=== PATIENT | female | born 1990 | race Caucasian/White ===

== ENCOUNTER 2020-02-10 05:36 | Inpatient (IN) ==
--- NOTE | 2020-02-07 17:04 | History & Physical Report ---
Date of Service February 07, 2020 Assessment & Plan (1) Previous delivery affecting , antepartum: (2) Encounter for sterilization: (3) History of classical section: (4) 36 to 37 weeks gestation of : (5) Bicornuate uterus: plan admit on monday for planned section, desires tubal as well. consent reviewed and signed. on bedside u/s today cephalic presentation. risk, alt and complications reviewed of both procedures. preop, postop instructions and course reviewed. History of Present Illness Chief Complaint: planned section with h/o T incision on uterus Primary Care Provider: Calvin Power MD 29yo who will be 36 6/7wks on day of her admission for planned section due to prior T incision on uterus. Patient desires repeat c/s due to prior history of section x 2. She also desires tubal ligation. At her last section both her skin and uterine incision wer converted to a T shape due to difficulty delivering the back down fetus in presence of bicornuate uterus. She is ready for upcoming section. Denies bleeding, rom or poor movement. She is sure she is done childbearing. PNC c/b 1. prior c/s x 2 as described above 2. desires sterilization 3. short interval 4. bicornuate uterus PNL rh pos, ri, gbs neg. Allergies Allergy/AdvReac Type Severity Reaction Status Date / Time clavulanic acid Allergy Intermediate AUGMENTIN-R Verified 02/07/20 08:47 SIM Penicillins Allergy Intermediate AUGMENTIN-R Verified 02/07/20 08:47 SIM cat dander Allergy Mild sneezing, Verified 02/07/20 08:47 watery eyes, swelling of eyes Home Medications Home Medications Medication Instructions Recorded Confirmed Type Vitamin 1 tab PO HS 11/19/18 02/07/20 History albuterol sulfate 1 inh INHALATION QID PRN 02/06/20 02/07/20 History calcium carbonate [Tums] 300 mg PO QID PRN 02/06/20 02/07/20 History loratadine 10 mg PO HS 02/06/20 02/07/20 History breast pump #1 ea 02/07/20 02/07/20 Rx Patient History Medical History (Updated 02/07/20 @ 17:03 by Sherrie Thayer MD, FACOG) Allergy-induced asthma inhaler prn Bicornuate uterus Nausea and vomiting after administration of anesthetic agent Surgical History (Updated 02/07/20 @ 17:02 by Sherrie Thayer MD, FACOG) History of x2 History of classical section History of colonoscopy with polypectomy at age 5--d/t bleeding in stool--found polyps and removed History of tonsillectomy and adenoidectomy [place] teeth removed Family History (Updated 02/06/20 @ 11:06 by Melissa Mckinley, GEM) Mother Family history of diabetes mellitus Father Family history of diabetes mellitus Sister Family history of diabetes mellitus Family/Other Breast cancer Grandmother (Maternal) Hypertension Grandfather (Paternal) Hypertension Family history of diabetes mellitus Grandmother (Paternal) Family history of diabetes mellitus Other No family history of adverse response to anesthesia Social History Preferred Language: Telugu Communication Ability: Effective Heating Technician Required: No Beliefs That Will Affect Care: None marital status: marital status details: Kian Vazquez (33) [phone] Current Living Situation: Spouse and Family Current Living Situation Comment: lives with and 2 sons current occupational status: unemployed current occupation: homemaker Feels Safe at Home: Yes Smoking Status: Never smoker Second Hand Exposure: No ; Hx Substance Use: No OB History sab x1, c/s x 2, last c/s complicated by T incision on uterus HOT BREAD BAKER History nl paps, no stds Review of Systems as per Subjective / HPI; no fever no change in stools no dysuria and no abnormal vaginal bleeding Physical Exam Constitutional: WD/WN, vitals as above Respiratory: normal respiratory effort, lungs clear to auscultation Cardiovascular: Rate/Rhythm: regular rate and regular rhythm Gastrointestinal (Abdomen): Percussion/Palpation: abdomen soft (gravid, well healed midline and pfannenstiel incision); abdomen nontender Musculoskeletal: nt calves. no edema Neurologic: grossly normal Psychiatric: A+Ox3, euthymic affect Coding Level of Care Code None Diagnoses Previous delivery affecting , antepartum O34.219 Encounter for sterilization Z30.2 History of classical section Z98.891 36 to 37 weeks gestation of Bicornuate uterus Q51.3
[2020-02-10] MEDS ORDERED: LACTATED RINGER'S 1,000 ML IV SCH ×2 (05:45→08:30)
[2020-02-10] MEDS ORDERED: CEFAZOLIN 2000MG 2,000 MG/15 ML SYR IV SCH (06:00)
[2020-02-10 06:01] LABS: Basophils # (auto) 0.02 K/uL (0-0.2); Basophils % (auto) 0.2 %; Eosinophils # (auto) 0.33 K/uL (0-0.5); Eosinophils % (auto) 2.9 %; Hematocrit (blood only) 38.1 % (37-47); Hemoglobin 12.6 g/dL (12.0-16.0); Immature Granulocytes # (auto) 0.09 K/uL (0.00-0.02); Immature Granulocytes % (auto) 0.8 %; Lymphocytes # (auto) 2.53 K/uL (1.2-3.4); Lymphocytes % (auto) 22.4 %; Mean Corpuscular Hemoglobin 30.7 pg (25-34); Mean Corpuscular Volume 92.9 fL (80-100); Mean Platelet Volume 10.5 fL (7.4-10.4); Monocytes # (auto) 0.73 K/uL (0.11-0.59); Monocytes % (auto) 6.5 %; Neutrophils % (auto) 67.2 %; Platelet Count 141 K/uL (130-400); RDW Coefficient of Variation 15.3 % (11.5-14.5); RDW Standard Deviation 51.8 fL (36.4-46.3)
[2020-02-10 06:05] LABS: Mean Corpuscular Hgb Conc 33.1 g/dL (32-36)
[2020-02-10] MEDS ORDERED: PHENYLEPHRINE HCL 10 MG/ML VIAL ONE (06:47)
[2020-02-10] MEDS ORDERED: fentaNYL citrate 100 MCG/2 ML VIAL ONE (06:47)
[2020-02-10] MEDS ORDERED: MoRPHine SULFATE PF 1 MG/ML 10 ML AMP/VIAL ONE (06:47)
[2020-02-10] MEDS ORDERED: METOCLOPRAMIDE HCL INJ 5 MG/ML 2 ML VIAL ONE (06:47)
[2020-02-10] MEDS ORDERED: ONDANSETRON INJ 2 MG/ML 2 ML VIAL ONE (06:47)
[2020-02-10] MEDS ORDERED: ePHEDrine sulfate 50 MG/ML AMP ONE (06:47)
[2020-02-10] MEDS ORDERED: OXYTOCIN 10 UNITS/ML VIAL ONE ×3 (06:47)
[2020-02-10] MEDS ORDERED: CITRIC ACID/SODIUM CITRATE 15 ML UDC PO ONE (06:56)
--- NOTE | 2020-02-10 07:03 | Anesthesiology Consultation ---
Date of Service February 10, 2020 Assessment & Plan Chart Review Chart Review: Acceptable Risk for Surgery Consults Requested none ASA ASA2 Proposed Anesthesia Anesthesia Type: Spinal Risk / Benefits Reviewed With: PT / POA / Parent / Guardian, Accepts Plan and Informed Consent Obtained History Surgery Operation Date: 02/10/20 07:30 Proposed Procedures p Section in LD - Sherrie Thayer MD, FACOG s Post Tubal Ligation L & D - Sherrie Thayer MD, FACOG Height/Weight Height: 5 ft Weight: 72.121 kg Allergies Allergy/AdvReac Type Severity Reaction Status Date / Time clavulanic acid Allergy Intermediate AUGMENTIN-R Verified 02/10/20 05:56 SIM Penicillins Allergy Intermediate AUGMENTIN-R Verified 02/10/20 05:56 SIM cat dander Allergy Mild sneezing, Verified 02/10/20 05:56 watery eyes, swelling of eyes Medications Home Medications Medication Instructions Recorded Confirmed Last Taken Vitamin 1 tab PO HS 11/19/18 02/10/20 02/09/20 19:00 albuterol sulfate 1 inh INHALATION QID PRN 02/06/20 02/07/20 Unknown calcium carbonate [Tums] 300 mg PO QID PRN 02/06/20 02/10/20 02/09/20 19:00 loratadine 10 mg PO HS 02/06/20 02/10/20 02/09/20 19:00 breast pump #1 ea 02/07/20 02/07/20 Unknown NPO Date Last Intake of Fluids: 02/09/20 Time Last Intake of Fluids: 22:30 Date Last Intake of Solids: 02/09/20 Time Last Intake of Solids: 20:00 Past Medical History Medical History Allergy-induced asthma inhaler prn Bicornuate uterus Nausea and vomiting after administration of anesthetic agent Exercise / Class Metabolic Activity II 4-5 Yardwork/Stairs/Walk up hill Past Family History Family History Mother Family history of diabetes mellitus Father Family history of diabetes mellitus Sister Family history of diabetes mellitus Family/Other Breast cancer Grandmother (Maternal) Hypertension Grandfather (Paternal) Hypertension Family history of diabetes mellitus Grandmother (Paternal) Family history of diabetes mellitus Other No family history of adverse response to anesthesia Past Surgical History Surgical History History of x2 History of classical section History of colonoscopy with polypectomy at age 5--d/t bleeding in stool--found polyps and removed History of tonsillectomy and adenoidectomy [place] teeth removed Past Anesthesia History No Hx of Anesthesia Complications and No Family Hx of Anesthesia Complications History of PONV No Hx of PONV and No Hx of Motion Sickness Social History Smoking Status: Never smoker Do You Dip or Chew Tobacco: No Hx Alcohol Use: No Alcohol Intake Frequency Comment: drinks rarely for special occasions but none during Hx Substance Use: No substance use type: does not use Physical Exam Vital Signs Last Vital Signs Temp 37.1 C 02/10/20 05:58 Pulse 107 H 02/10/20 06:15 Resp 18 02/10/20 06:15 BP 110/60 02/10/20 06:15 ENMT Mouth: no TMJ abnormality Thyromental Distance: > or= 3.5 Finger Breadths Mallampati Class: II Neck normal visual inspection and trachea midline; neck extension not limited Respiratory normal respiratory effort Auscultation: lungs clear to auscultation bilaterally Cardiovascular Rate/Rhythm: regular rate and regular rhythm Heart Sounds: no murmur Musculoskeletal Spine: normal cervical ROM Extremities: full ROM of extremities Neurologic moves all extremities Psychiatric Orientation: alert and oriented x 3 Testing Laboratory Results 02/10/20 05:52 Blood Type O Positive 02/10/20 05:45 Antibody Screen NEGATIVE 02/10/20 05:45
[2020-02-10] MEDS ORDERED: ePHEDrine sulfate 50 MG/ML AMP IV PRN (07:13)
[2020-02-10] MEDS ORDERED: NALOXONE HCL 1 MG in SODIUM CHLORIDE 0.9% 1000ML 1,000 ML IV PRN (07:13)
[2020-02-10] MEDS ORDERED: MoRPHine SULFATE 2 MG/ML CARP IV PRN (07:13)
[2020-02-10] MEDS ORDERED: MoRPHine SULFATE PF 1 MG/ML 10 ML AMP/VIAL INT SPINAL ONE (07:13)
[2020-02-10] MEDS ORDERED: ONDANSETRON INJ 2 MG/ML 2 ML VIAL IV PRN (07:13)
[2020-02-10] MEDS ORDERED: LACTATED RINGER'S 500 ML IV PRN (07:13)
[2020-02-10] MEDS ORDERED: NALOXONE HCL 0.08 MG in SYRINGE 1.8 ML IV PRN (07:13)
[2020-02-10] MEDS ORDERED: PROMETHAZINE HCL 25 MG in SODIUM CHLORIDE 0.9% 50 ML IV PRN (07:13)
[2020-02-10] MEDS ORDERED: NALBUPHINE HCL INJ 10 MG/ML AMP IV PRN (07:13)
[2020-02-10] MEDS ORDERED: METOCLOPRAMIDE HCL 20 MG in SODIUM CHLORIDE 0.9% 50 ML IV PRN (07:13)
[2020-02-10] MEDS ORDERED: MEPERIDINE HCL 25 MG/ML CARP/VIAL IV PRN (07:13)
[2020-02-10] MEDS ORDERED: DiphenhydrAMINE HCL 50 MG/ML VIAL IV PRN (07:13)
[2020-02-10] MEDS ORDERED: NALOXONE HCL 0.4 MG/1 ML VIAL/CARP IV PRN (07:13)
[2020-02-10] MEDS ORDERED: SODIUM CHLORIDE 0.9% 1000ML 1,000 ML IV SCH (07:15)
[2020-02-10] MEDS ORDERED: NO NARCOTICS OR SEDATIVES SCH (07:15)
[2020-02-10] MEDS ORDERED: DC INTRASPINAL MORPHINE SCH (07:15)
--- NOTE | 2020-02-10 07:27 | History & Physical Bridge Note ---
Date of Service February 10, 2020 History & Physical Bridge Note I have examined the patient, reviewed the History & Physical and in the interval since the performance of the History & Physical I have noted the following changes of clinical significance: no changes noted. baby now transverse back down on us. reviewed operative plan with patient. she plans tubal as well.
[2020-02-10] MEDS ORDERED: PHENYLEPHRINE 100MCG/ML 5ML SYR ONE (08:03)
[2020-02-10] MEDS ORDERED: ePHEDrine sulfate 50 MG/ML SYR ONE (08:22)
[2020-02-10] MEDS ORDERED: SENNA 8.6 MG TAB PO PRN (08:28)
[2020-02-10] MEDS ORDERED: HYDROCORTISONE ACETATE 25 MG SUPP PR PRN (08:28)
[2020-02-10] MEDS ORDERED: BENZOCAINE 20% AER SPR 82.5 GM CAN EXT PRN (08:28)
[2020-02-10] MEDS ORDERED: DIPHTHERIA/TETANUS/PERTUSSIS 0.5 ML SYR/VIAL IM ONE (08:28)
[2020-02-10] MEDS ORDERED: SUPERCREAM 0.870% 15 GM JAR EXT PRN (08:28)
--- NOTE | 2020-02-10 08:40 | Post Operative Brief Note ---
PG Immediate Post Op with CF Date of Surgery February 10, 2020 Pre & Post Diagnosis Operation Date: 02/10/20 07:30 Pre-Op Diagnosis: 36+wk intrauterine repeat section desires permanent sterilization Post-Op Diagnosis: same I identified the patient and participated in the time-out.: Yes Procedure Operation Date: 02/10/20 07:30 Actual Procedures Repeat Low Vertical Section Modified Efren Bilateral Tubal Ligation Surgeon Sherrie Thayer MD, FACOG Taper And Floater Dr. Sprague Estimated Blood Loss 650 Findings Consistent with Post-Op Diagnosis (viable female apgars 8,9, normal uterus tubes and ovaries bilaterally. cavity with left fundal muscular septum) Fluids 2000 Specimens Specimen Description: cord blood placenta--hold bilateral portions of fallopian tubes Drains Umanzor Catheter Anesthesia Type Spinal Complications none Disposition Accompanied Patient To Recovery: No Disposition: L&D
--- NOTE | 2020-02-10 08:55 | Operative Report ---
PG Post Operative Report Pre & Post Diagnosis Operation Date: 02/10/20 07:30 Pre-Op Diagnosis: 36+wks ega repeat section prior classical section desires pemanent sterilization Post-Op Diagnosis: same I identified the patient and participated in the time-out.: Yes Procedure Operation Date: 02/10/20 07:30 Actual Procedures Repeat Low Vertical Section Modified Efren Bilateral Tubal Ligation Surgeon Sherrie Thayer MD, FACOG Trust Administrative Assistant Dr. Sprague Estimated Blood Loss 650 Findings Consistent with Post-Op Diagnosis (viable female, apgars 8,9, normal uterus, tubes and ovaries bilaterally. cavity with muscular septum on left fundus. ) Fluids 2000 Specimens portions of right and left fallopian tubes, placenta--hold, cord blood Drains olivera Anesthesia Type Spinal Complications none Disposition Accompanied Patient To Recovery: No Disposition: L&D Indications 29yo at 36+wks namrata presents to L&D for planned repeat section with h/o prior classical uterine incision with last section. She desires permanent sterilization as well. Aware of all options for control. Consents signed and ready to proceed. Bedside us shows back down transverse fetus with head on left. Description of Procedure The patient was taken to the operating room and identified. After adequate anesthesia was obtained, she was placed in the supine position with a leftward tilt on the operating table and prepped and draped in the usual sterile fashion. A olivera catheter had already been placed. The knife was used to create a Pfannensteil skin incision that was carried down to the underlying layer of fascia. The fascia was nicked in the midline and this opening was extended laterally using Humphreys scissors. Linda clamps were placed on the superior and inferior aspect of the fascial incision tenting it upward and the underlying rectus muscles were dissected off the overlying fascia both sharply and bluntly using Humphreys scissors. The rectus muscles were bluntly in the midline. The peritoneal cavity was bluntly entered into. This opening was stretched. The bladder blade was placed. The vesicouterine peritoneum was elevated and opened up into and the bladder flap was created digitally and bladder blade was replaced. The knife was used to create a vertical hysterotomy as planned due to baby position, back down transverse presentation. This opening was stretched and the amniotic sac was ruptured . The operators hand was placed through the hysterotomy and the cephalic was held and rotated and the bladder blade was removed. The head was elevated and flexed and with fundal pressure the head was delivered. The shoulders and body were rapidly delivered. The cord was clamped and cut and the infant's mouth and nares were bulb suction. The infant was handed off to the awaiting pediatricians. Cord blood was obtained. The placenta was manually expressed. The uterus was exteriorized and cleared of all clots and debris. Dilute IV Pitocin was begun. The uterine tone was improving. The hysterotomy was closed in a running interlocking fashion using 0 Vicryl followed by a second imbricating layer of 0 Vicryl. One area of bleeding in midline was stitched with an interrupted figure of eight suture of 2-0 vicryl. The hysterotomy was hemostatic. The right fallopian tube were identified to its fimbriated end. The tube was grasped with a lizeth clamp and elevated. A knuckle of tube was doubly ligated with 2-0 plain suture. The portion of tube was transected and sent as specimen and the stumps were cauterized for excellent hemostasis. The left fallopian tube was elevated and l igated and transected and cauterized in the same fashion. The pelvis was irrigated. The uterus was returned to the abdomen. The gutters were cleared of all clots and debris. The hysterotomy was reinspected and noted to be hemostatic. The fascia was then closed in running fashion using 0 Vicryl. The subcutaneous fat was copiously irrigated and reapproximated using 2-0 chromic. The skin was closed in a subcuticular fashion using 4-0 Vicryl. At this point the procedure was terminated. The patient was transferred to the recovery room in stable condition. All sponge, lap and needle counts are correct x2. I attest to the content of the Intraoperative Record and any orders documented therein. Any exceptions are noted below.
--- NOTE | 2020-02-10 09:04 | Anesthesiology Progress Note ---
Date of Service February 10, 2020 Anesthesia Post Procedure Vital Signs Vital Signs: Temp Pulse Resp BP Pulse Ox 02/10/20 09:00 101 H 95 02/10/20 08:59 97 H 94 02/10/20 08:58 107 H 113/59 L 02/10/20 08:55 104 H 96 02/10/20 08:50 98 H 95 02/10/20 08:47 94 H 118/53 L 02/10/20 08:46 100 H 196/138 H 02/10/20 08:44 105 H 98 02/10/20 07:00 36.9 C 20 02/10/20 06:15 107 H 18 110/60 02/10/20 06:04 106 H 140/68 02/10/20 05:58 37.1 C 18 Transfer of Care Handoff Completed per policy Notes Mental Status: alert / awake / arousable Patient Amnestic to Procedure: Yes Nausea / Vomiting: adequately controlled Pain: adequately controlled Airway Patency, RR, SpO2: stable & adequate BP & HR: stable & adequate Hydration State: stable & adequate Neuraxial Anesthesia: was administered and sensory block is resolving Anesthetic Complications: no major complications apparent and Pt Satisfied with anesthetic care
[2020-02-10] MEDS: KETOROLAC 30 MG/ML VIAL IV PRN ×2 (10:24→16:19)
[2020-02-10] MEDS: OXYTOCIN 20 UNITS in LACTATED RINGER'S 1,000 ML IV SCH ×2 (11:02→18:41)
[2020-02-10] MEDS: SIMETHICONE 80 MG CHEW PO SCH ×3 (16:18→20:48)
[2020-02-10] MEDS: DOCUSATE SODIUM 100 MG CAP PO SCH (20:48)
[2020-02-10] MEDS: LORATADINE 10 MG TAB PO SCH (20:49)
[2020-02-11] MEDS ORDERED: ONDANSETRON INJ 2 MG/ML 2 ML VIAL IV PRN (01:15)
[2020-02-11] MEDS ORDERED: DiphenhydrAMINE HCL 50 MG/ML VIAL IV PRN (01:15)
[2020-02-11] MEDS ORDERED: KETOROLAC 30 MG/ML VIAL IV PRN (01:15)
[2020-02-11] MEDS ORDERED: PROMETHAZINE HCL 25 MG in SODIUM CHLORIDE 0.9% 50 ML IV PRN (01:15)
[2020-02-11 06:14] LABS: Basophils # (auto) 0.01 K/uL (0-0.2); Basophils % (auto) 0.1 %; Eosinophils # (auto) 0.08 K/uL (0-0.5); Eosinophils % (auto) 0.8 %; Hematocrit (blood only) 38.2 % (37-47); Hemoglobin 12.5 g/dL (12.0-16.0); Immature Granulocytes # (auto) 0.03 K/uL (0.00-0.02); Immature Granulocytes % (auto) 0.3 %; Lymphocytes # (auto) 1.45 K/uL (1.2-3.4); Mean Corpuscular Hemoglobin 30.6 pg (25-34); Mean Corpuscular Hgb Conc 32.7 g/dL (32-36); Mean Corpuscular Volume 93.4 fL (80-100); Mean Platelet Volume 10.8 fL (7.4-10.4); Monocytes # (auto) 0.98 K/uL (0.11-0.59); Monocytes % (auto) 9.4 %; Neutrophils # (auto) 7.84 K/uL (1.4-6.5); Neutrophils % (auto) 75.4 %; Platelet Count 139 K/uL (130-400); RDW Coefficient of Variation 15.3 % (11.5-14.5); Red Blood Count 4.09 M/uL (4.2-5.4); White Blood Count 10.39 K/uL (4.8-10.8)
--- NOTE | 2020-02-11 07:42 | Obstetrical Progress Note ---
Date of Service February 11, 2020 Assessment & Plan (1) Delivery by section using low vertical uterine incision: stable, doing well, routine care. hgb normal. adv diet, ambulate, support. Day #:: 1 Subjective Ambulation: limited ambulation Voiding: no voiding problems Passing Gas:: Yes Diet Tolerance:: clear liquids Lochia:: Small Feeding Type:: breast feeding denies pain issues. feels well. reviewed delivery. Physical Exam Constitutional WD/WN, vitals as above Respiratory normal respiratory effort, lungs clear to auscultation Cardiovascular Rate/Rhythm: regular rate and regular rhythm Gastrointestinal (Abdomen) Inspection/Auscultation: abdomen normal to inspection, normal bowel sounds and + abdominal surgical incision (c/d/i) Percussion/Palpation: abdomen soft Fundus firm 2cm down Musculoskeletal nt calves no edema Neurologic grossly normal Psychiatric A+Ox3, euthymic affect Results & Data Vital Signs (Past 12 Hours) Vital Signs Temp Pulse Resp BP Pulse Ox 02/11/20 04:30 98.2 F 92 H 20 98/65 L 95 02/11/20 01:00 18 96 02/11/20 00:00 16 95 02/10/20 23:45 98.2 F 86 20 103/67 95 02/10/20 23:00 18 96 02/10/20 22:00 18 99 02/10/20 21:00 18 99 02/10/20 20:00 20 98
[2020-02-11] MEDS: PRENATAL VITAMIN 1 TAB PO SCH (08:08)
[2020-02-11] MEDS: IBUPROFEN 600 MG TAB PO PRN ×4 (08:08→23:49)
[2020-02-11] MEDS: OXYCODONE/ACETAMINOPHEN 5mg/325mg TAB PO PRN ×4 (08:08→23:48)
[2020-02-11] MEDS: DOCUSATE SODIUM 100 MG CAP PO SCH ×2 (08:08→19:59)
[2020-02-11] MEDS: FERROUS SULFATE 325 MG TAB PO SCH (08:08)
[2020-02-11] MEDS: SIMETHICONE 80 MG CHEW PO SCH ×4 (08:08→19:59)
[2020-02-11] MEDS: LORATADINE 10 MG TAB PO SCH (19:59)
[2020-02-12 00:42] VITALS: PULSE 71
[2020-02-12] MEDS: IBUPROFEN 600 MG TAB PO PRN ×3 (03:37→13:52)
[2020-02-12] MEDS: OXYCODONE/ACETAMINOPHEN 5mg/325mg TAB PO PRN ×3 (03:37→13:52)
--- NOTE | 2020-02-12 07:24 | Obstetrical Progress Note ---
Date of Service February 12, 2020 Assessment & Plan (1) Delivery by section using low vertical uterine incision: Postoperative from section patient meets discharge criteria as she is ambulating well tolerating an oral diet has minimal bleeding and no extremity pain. Discharge instructions were reviewed and prescriptions were sent to her pharmacy of choice patient advised to call with any concerns and follow-up in the office discussed Subjective Ambulation: ambulating normally Voiding: no voiding problems Passing Gas:: Yes Diet Tolerance:: regular diet Lochia:: Small Feeding Type:: breast feeding Current Pain Level(1-10): 2 Physical Exam Constitutional WD/WN, vitals as above Gastrointestinal (Abdomen) normal bowel sounds, soft, nontender, no hepatosplenomegaly (incision cdi, ext neg) Results & Data Vital Signs (Past 12 Hours) Vital Signs Temp Pulse Resp BP Pulse Ox 02/11/20 23:40 97.3 F L 71 18 109/70 97 02/11/20 19:50 97.9 F 89 18 99/66 L 97
[2020-02-12 07:56] LABS: Hematocrit (blood only) 37.1 % (37-47); Hemoglobin 12.2 g/dL (12.0-16.0)
[2020-02-12] MEDS: FERROUS SULFATE 325 MG TAB PO SCH (08:11)
[2020-02-12] MEDS: DOCUSATE SODIUM 100 MG CAP PO SCH (08:11)
[2020-02-12] MEDS: PRENATAL VITAMIN 1 TAB PO SCH (08:11)
[2020-02-12] MEDS: SIMETHICONE 80 MG CHEW PO SCH ×2 (08:11→12:15)
[2020-02-12 08:47] VITALS: BP 104/71; TEMP 97.7; O2SAT 98
--- NOTE | 2020-02-13 15:05 | Discharge Summary ---
Date of Service Day of admission: 02/10/20 Day of discharge: 02/12/20 Admission HPI Per Admitting Provider 29yo who will be 36 6/7wks on day of her admission for planned section due to prior T incision on uterus. Patient desires repeat c/s due to prior history of section x 2. She also desires tubal ligation. At her last section both her skin and uterine incision wer converted to a T shape due to difficulty delivering the back down fetus in presence of bicornuate uterus. She is ready for upcoming section. Denies bleeding, rom or poor movement. She is sure she is done childbearing. PNC c/b 1. prior c/s x 2 as described above 2. desires sterilization 3. short interval 4. bicornuate uterus PNL rh pos, ri, gbs neg. Admission diagnoses: 36+wk ega, prior c/s complicated by classical uterine incision, bicornuate uterus, malpresentation, desires sterilization. Discharge diagnoses: same Discharge Data Consultations 02/10/20 05:43 Consult Anesthesiology Stat Procedures Performed Operation Date: 02/10/20 07:30 Actual Procedures Low vertical section Modified xavi bilateral tubal ligation Hospital Course (1) Delivery by section using low vertical uterine incision: (2) Encounter for sterilization: The patient underwent the above stated procedure without incident and her postoperative course and recovery was uncomplicated. On her postop day #2 she was tolerating a regular diet, voiding, ambulating without problem and was using oral meds for pain control. Her postoperative hemoglobin was 12.2. She was given discharge instructions and told to followup in office at 6wks. She was given appropriate pain medicine prescriptions. Coding Level of Care Code None Diagnoses Delivery by section using low vertical uterine incision O82 Encounter for sterilization Z30.2
== END 2020-02-12 14:25 | disposition home or self-care (01) | DRG 785 ==
LOC: 4S1 05:36 → 4S2 11:10 → EDSTATUS 02-27 07:30

== ENCOUNTER 2020-02-16 23:12 | Observation (INO) ==
[2020-02-16] MEDS ORDERED: LABETALOL HCL IV 5 MG/ML 20ML IV STA (23:30)
[2020-02-16] MEDS ORDERED: MAG SULFATE 4GM BOLUS FROM BAG IV ONE (23:40)
--- NOTE | 2020-02-16 23:47 | History & Physical Report ---
Date of Service February 16, 2020 Assessment & Plan (1) Pre-eclampsia: Given patient's status, her elevated BP, and her elevated creatinine, the first concern is that the patient appears to have an atypical preeclampsia. Her creatinine is 2.32, and there are no previous values to quyen re in her history. She has no known kidney disease. She has a large output of clear yellow urine, and her UA shows no proteinuria. Her head and abd/pelvis CT scans were both unremarkable. I discussed with her my recommendation for magnesium treatment for 24h to reduce risk of development of seizures. She is agreeable. Reviewed side effects of treatment. During magnesium, will use olivera catheter and stay in bed with clear liquids only. Will give a magnesium bolus 4g, followed by 1g/h magnesium infusion. Will monitor her closely for magnesium toxicity via symptoms and therapeutic mag lab level. Will repeat preeclampsia labs now upon admission to L&D and again in 6 hours. If no improvement in kidney function overnight, may need to consider additional workup, possibly with internal medicine consultation. History of Present Illness Chief Complaint: headache, elevated BP Primary Care Provider: Calvin Power MD 29yo POD#6 s/p section and tubal ligation, presented to ER today with 1 days' history of severe frontal headache, and checking BP at home found values 180-190s/100s. No vision changes. No RUQ pain. Does complain of LE edema. Pain mostly controlled from , does have some achiness at right side of Pfann ensteil skin incision. , has infant with her in room currently feeding. No difficulty breathing, no chest pain, no shortness of breath. was complicated by h/o uterine T-incision in prior , h/o CS x2, short interval after , bicornuate uterus. No blood pressure concerns during . Allergies Allergy/AdvReac Type Severity Reaction Status Date / Time clavulanic acid Allergy Intermediate AUGMENTIN-R Verified 02/10/20 05:56 SIM Penicillins Allergy Intermediate AUGMENTIN-R Verified 02/10/20 05:56 SIM cat dander Allergy Mild sneezing, Verified 02/10/20 05:56 watery eyes, swelling of eyes Home Medications Home Medications Medication Instructions Recorded Confirmed Type Vitamin 1 tab PO HS 11/19/18 02/10/20 History albuterol sulfate 1 inh INHALATION QID PRN 02/06/20 02/07/20 History calcium carbonate [Tums] 300 mg PO QID PRN 02/06/20 02/10/20 History loratadine 10 mg PO HS 02/06/20 02/10/20 History ibuprofen 600 mg PO Q8H PRN #20 tab 02/12/20 Rx oxycodone-acetaminophen [Percocet] 1 tab PO Q6H PRN #20 tab 02/12/20 Rx Patient History Medical History Allergy-induced asthma inhaler prn Bicornuate uterus Nausea and vomiting after administration of anesthetic agent Surgical History History of x2 History of classical section History of colonoscopy with polypectomy at age 5--d/t bleeding in stool--found polyps and removed History of tonsillectomy and adenoidectomy [place] teeth removed Family History Mother Family history of diabetes mellitus Father Family history of diabetes mellitus Sister Family history of diabetes mellitus Family/Other Breast cancer Grandmother (Maternal) Hypertension Grandfather (Paternal) Hypertension Family history of diabetes mellitus Grandmother (Paternal) Family history of diabetes mellitus Other No family history of adverse response to anesthesia Social History Preferred Language: Armenian Communication Ability: Effective Car Restorer Required: No Beliefs That Will Affect Care: None marital status: marital status details: Kian Vazquez (33) [phone] Current Living Situation: Family Current Living Situation Comment: , 2 sons current occupational status: unemployed current occupation: homemaker Feels Safe at Home: Yes Smoking Status: Never smoker Second Hand Exposure: No ; Hx Alcohol Use: No Hx Substance Use: No Review of Systems All systems reviewed & are unremarkable except as noted in HPI & below Physical Exam Physical Exam: Constitutional: alert, in no acute distress, well nourished, well developed and healthy appearing. Actively . Skin: normal skin color and pigmentation, normal skin turgor and no rash. Neck: the appearance of the neck was normal Pulmonary: no respiratory distress, normal respiratory rhythm and effort and clear bilateral breath sounds. Cardiovascular: heart rate and rhythm were normal, normal S1 and S2 and no murmurs present. Breasts: normal in appearance, bilateral engorgement, actively Abdomen: soft, non-tender. Incision is healing well. Neurological: The patient was oriented to person, place, and time. Mood and affect were appropriate. Extremities: 1+ edema, no calf tenderness. 3+/4 bilateral DTRs. No clonus. Results & Data Vital Signs (Past 12 Hours) Vital Signs Pulse BP 02/16/20 23:32 75 155/99 H Coding Level of Care Code 24019 Initial Inpt Care Lvl 2 Diagnoses Pre-eclampsia O14.90 Trimester: unspecified trimester (1) Pre-eclampsia Trimester: unspecified trimester Qualified Code(s): O14.90 - Unspecified pre- eclampsia, unspecified trimester
[2020-02-16 23:59] LABS: Basophils # (auto) 0.02 K/uL (0-0.2); Basophils % (auto) 0.2 %; Eosinophils # (auto) 0.07 K/uL (0-0.5); Eosinophils % (auto) 0.7 %; Hematocrit (blood only) 41.7 % (37-47); Hemoglobin 14.5 g/dL (12.0-16.0); Immature Granulocytes # (auto) 0.03 K/uL (0.00-0.02); Immature Granulocytes % (auto) 0.3 %; Lymphocytes # (auto) 1.71 K/uL (1.2-3.4); Lymphocytes % (auto) 16.8 %; Mean Corpuscular Hemoglobin 31.7 pg (25-34); Mean Corpuscular Hgb Conc 34.8 g/dL (32-36); Mean Corpuscular Volume 91.2 fL (80-100); Mean Platelet Volume 9.7 fL (7.4-10.4); Monocytes # (auto) 0.44 K/uL (0.11-0.59); Monocytes % (auto) 4.3 %; Neutrophils # (auto) 7.88 K/uL (1.4-6.5); Neutrophils % (auto) 77.7 %; Platelet Count 228 K/uL (130-400); RDW Coefficient of Variation 14.3 % (11.5-14.5); RDW Standard Deviation 47.9 fL (36.4-46.3); Red Blood Count 4.57 M/uL (4.2-5.4); White Blood Count 10.15 K/uL (4.8-10.8)
[2020-02-17] MEDS ORDERED: ACETAMINOPHEN 325 MG TAB PO PRN (00:04)
[2020-02-17] MEDS: LACTATED RINGER'S 1,000 ML IV PRN ×2 (00:10→19:03)
[2020-02-17 00:16] LABS: Alanine Aminotransferase 26 U/L (12-78); Albumin Level 2.8 gm/dl (3.4-5.0); Aspartate Aminotransferase 14 U/L (15-37); BUN Creatinine Ratio 18.5 (10-20); Blood Urea Nitrogen 40 mg/dl (7-18); Calcium 8.3 mg/dl (8.5-10.1); Carbon Dioxide 22 mmol/L (21-32); Chloride 112 mmol/L (98-107); Est GFR (African American) 34.8; Glucose 104 mg/dl (70-99); Magnesium Therapeutic L&D Only 2.2 mg/dL (4.0-8.0); Potassium 4.5 mmol/L (3.5-5.1); Sodium 144 mmol/L (136-145)
[2020-02-17] MEDS: MAGNESIUM SULFATE / WTR 40 GM/1,000 ML BAG IV SCH ×2 (00:17→23:51)
[2020-02-17 00:19] LABS: Albumin Globulin Ratio 0.7 (0.9-2); Alkaline Phosphatase 111 U/L (45-117); Bilirubin,Total 0.4 mg/dl (0.2-1); Globulin 3.8 gm/dl (2.5-4.0); Total Protein 6.6 gm/dl (6.4-8.2)
[2020-02-17 01:01] LABS: Creatinine Urine Random < 13.0 mg/dl
[2020-02-17 06:10] LABS: Hematocrit (blood only) 41.6 % (37-47); Mean Corpuscular Hemoglobin 30.5 pg (25-34); Mean Corpuscular Hgb Conc 33.7 g/dL (32-36); Mean Corpuscular Volume 90.6 fL (80-100); Mean Platelet Volume 9.9 fL (7.4-10.4); Platelet Count 232 K/uL (130-400); RDW Coefficient of Variation 14.4 % (11.5-14.5); RDW Standard Deviation 48.4 fL (36.4-46.3); Red Blood Count 4.59 M/uL (4.2-5.4); White Blood Count 9.93 K/uL (4.8-10.8)
[2020-02-17 06:29] LABS: Albumin Level 2.6 gm/dl (3.4-5.0); BUN Creatinine Ratio 18.5 (10-20); Calcium 8.2 mg/dl (8.5-10.1); Creatinine Clr Calc Pharmacy 42.3 ml/min; Est GFR (African American) 44.8; Est GFR (Non-African American) 38.7; Magnesium Therapeutic L&D Only 5.3 mg/dL (4.0-8.0); Potassium 3.7 mmol/L (3.5-5.1)
[2020-02-17 06:33] LABS: Albumin Globulin Ratio 0.7 (0.9-2); Bilirubin,Total 0.3 mg/dl (0.2-1); Globulin 3.6 gm/dl (2.5-4.0); Total Protein 6.2 gm/dl (6.4-8.2)
--- NOTE | 2020-02-17 07:31 | Obstetrical Progress Note ---
Date of Service February 17, 2020 Subjective Feeling much better this morning. Headache improved. Has had large amount of urine clear yellow output in [place] overnight. BPs improved, required one dose of IV labetalol last night and no further treatment. Gen: AAOx3 NAD CV: RRR L: CTAB Abd: soft, NTTP Ext: edema resolved, DTR 2/4 Labs improving - Cr improved from last night. Discussed with patient that I recommend that we continue magnesium for now, recheck labs at noon, and make decisions at that point whether to continue for a full 24 hours' mag treatment. She seems to be moving in the right direction with labs and symptoms. Results & Data Vital Signs (Past 12 Hours) Vital Signs Temp Pulse Resp BP Pulse Ox 02/17/20 07:25 70 97 02/17/20 07:20 73 98 02/17/20 07:15 78 97 02/17/20 07:13 77 115/82 02/17/20 07:10 73 99 02/17/20 07:05 70 98 02/17/20 07:00 76 100 02/17/20 06:58 62 118/82 02/17/20 06:55 75 99 02/17/20 06:50 79 98 02/17/20 06:45 79 96 02/17/20 06:43 70 117/80 02/17/20 06:40 71 97 02/17/20 06:35 68 98 02/17/20 06:30 84 99 02/17/20 06:28 73 115/80 02/17/20 06:25 83 97 02/17/20 06:20 77 96 02/17/20 06:16 69 110/73 02/17/20 06:15 73 97 02/17/20 06:10 70 97 02/17/20 06:05 76 98 02/17/20 06:00 74 98 02/17/20 05:58 71 113/78 02/17/20 05:55 80 97 02/17/20 05:50 80 98 02/17/20 05:45 79 97 02/17/20 05:43 75 112/76 02/17/20 05:40 87 97 02/17/20 05:35 91 H 98 02/17/20 05:30 36.4 C L 72 18 97 02/17/20 05:28 72 112/76 02/17/20 05:25 75 97 02/17/20 05:20 75 97 02/17/20 05:15 68 98 05 05:13 65 117/77 02/17/20 05:10 70 99 05 05:05 69 98 02/17/20 05:00 70 100 02/17/20 04:58 62 115/77 02/17/20 04:55 70 99 02/17/20 04:50 70 99 02/17/20 04:45 79 98 02/17/20 04:43 81 111/76 02/17/20 04:40 75 98 02/17/20 04:35 72 98 02/17/20 04:30 86 97 02/17/20 04:28 77 109/74 02/17/20 04:25 77 98 02/17/20 04:20 82 96 02/17/20 04:15 83 97 02/17/20 04:13 80 104/69 02/17/20 04:10 86 97 02/17/20 04:05 92 H 97 02/17/20 04:00 81 96 02/17/20 03:58 76 106/70 02/17/20 03:55 70 98 02/17/20 03:50 89 93 02/17/20 03:45 81 99 02/17/20 03:43 75 113/73 02/17/20 03:40 78 97 02/17/20 03:35 78 97 02/17/20 03:30 86 18 95 02/17/20 03:28 78 105/65 02/17/20 03:25 81 95 02/17/20 03:20 81 95 02/17/20 03:15 77 96 02/17/20 03:13 74 119/76 02/17/20 03:10 72 97 02/17/20 03:05 74 97 02/17/20 03:00 78 95 02/17/20 02:58 76 109/73 02/17/20 02:55 77 96 02/17/20 02:50 74 97 02/17/20 02:45 74 97 02/17/20 02:43 71 117/77 02/17/20 02:40 71 97 02/17/20 02:35 72 98 02/17/20 02:30 70 98 05/11/20 02:28 67 121/81 05/11/20 02:25 71 98 02/17/20 02:20 82 97 02/17/20 02:15 81 98 02/17/20 02:13 70 118/79 02/17/20 02:10 69 98 02/17/20 02:05 72 98 02/17/20 01:58 78 111/75 02/17/20 01:43 83 112/74 02/17/20 01:30 18 02/17/20 01:28 75 121/82 02/17/20 01:13 72 120/77 02/17/20 00:56 73 127/83 02/17/20 00:51 74 123/83 02/17/20 00:46 78 129/82 02/17/20 00:41 76 125/82 02/17/20 00:36 77 124/82 02/17/20 00:31 75 132/86 02/17/20 00:30 16 02/17/20 00:26 75 142/93 H 02/17/20 00:21 68 149/92 H 02/17/20 00:16 72 143/91 H 02/17/20 00:11 67 147/94 H 02/17/20 00:06 72 152/97 H 02/17/20 00:00 63 144/91 H 02/16/20 23:47 72 152/99 H 02/16/20 23:32 75 155/99 H 02/16/20 23:17 75 18 155/99 H 02/16/20 23:12 36.8 C 18 156/92 H PG Care Time/CCT Total # of Minutes Spent Total Time Spent with Patient: Total time spent is greater than 50% in coordination of care (as documented) at patient's floor/unit and/or counseling patient: Coding Level of Care Code 27332 Subseq Hosp Care Lvl 1
[2020-02-17 12:10] LABS: Hematocrit (blood only) 41.8 % (37-47); Hemoglobin 14.1 g/dL (12.0-16.0); Mean Corpuscular Hemoglobin 30.7 pg (25-34); Mean Corpuscular Hgb Conc 33.7 g/dL (32-36); Mean Corpuscular Volume 91.1 fL (80-100); Mean Platelet Volume 10.1 fL (7.4-10.4); Platelet Count 234 K/uL (130-400); RDW Coefficient of Variation 14.5 % (11.5-14.5); RDW Standard Deviation 48.6 fL (36.4-46.3); Red Blood Count 4.59 M/uL (4.2-5.4); White Blood Count 9.41 K/uL (4.8-10.8)
[2020-02-17 12:32] LABS: Albumin Globulin Ratio 0.8 (0.9-2); Albumin Level 2.7 gm/dl (3.4-5.0); BUN Creatinine Ratio 16.5 (10-20); Bilirubin,Total 0.3 mg/dl (0.2-1); Calcium 8.3 mg/dl (8.5-10.1); Creatinine Clr Calc Pharmacy 45.4 ml/min; Est GFR (African American) 48.8; Est GFR (Non-African American) 42.1; Globulin 3.4 gm/dl (2.5-4.0); Magnesium Therapeutic L&D Only 5.9 mg/dL (4.0-8.0); Potassium 3.3 mmol/L (3.5-5.1); Total Protein 6.1 gm/dl (6.4-8.2)
[2020-02-18 05:03] LABS: Hemoglobin 15.9 g/dL (12.0-16.0); Mean Corpuscular Hemoglobin 31.3 pg (25-34); Mean Corpuscular Hgb Conc 34.6 g/dL (32-36); Mean Corpuscular Volume 90.6 fL (80-100); Mean Platelet Volume 9.6 fL (7.4-10.4); Platelet Count 258 K/uL (130-400); RDW Coefficient of Variation 14.5 % (11.5-14.5); RDW Standard Deviation 48.4 fL (36.4-46.3); Red Blood Count 5.08 M/uL (4.2-5.4); White Blood Count 9.87 K/uL (4.8-10.8)
[2020-02-18 06:03] LABS: Albumin Level 2.7 gm/dl (3.4-5.0); BUN Creatinine Ratio 13.3 (10-20); Calcium 7.8 mg/dl (8.5-10.1); Creatinine Clr Calc Pharmacy 54.4 ml/min; Est GFR (African American) 60.7; Est GFR (Non-African American) 52.4; Potassium 3.4 mmol/L (3.5-5.1)
[2020-02-18 06:05] LABS: Albumin Globulin Ratio 0.7 (0.9-2); Bilirubin,Total 0.4 mg/dl (0.2-1); Globulin 3.8 gm/dl (2.5-4.0); Total Protein 6.5 gm/dl (6.4-8.2)
--- NOTE | 2020-02-18 08:26 | Obstetrical Progress Note ---
Date of Service February 18, 2020 Assessment & Plan (1) Pre-eclampsia: Patient admitted for Post PIH with severe features. S/p 24hr magnesium. PIH S/S improved. denies PIH symptoms, Labs improving, Good UOP. Stable for discharge with PIH precautions discussed Trimester: unspecified trimester Qualified Code(s): O14.90 - Unspecified pre-eclampsia, unspecified trimester Subjective Patient readmitted for PIH. She completed 24hr of Magnesium. She is denying PIH symptoms today. Renal function considerably improved Physical Exam Incision: Healing well Constitutional WD/WN, vitals as above Respiratory normal respiratory effort; no respiratory distress and no labored breathing Gastrointestinal (Abdomen) Inspection/Auscultation: abdomen normal to inspection; abdomen not distended Percussion/Palpation: abdomen soft; abdomen nontender, no guarding and abdomen not rigid Genitourinary OB Exam Abdomen: + fundal height Fundus: + firm and + relation to umbilicus (Below); not tender and not boggy Results & Data Vital Signs (Past 12 Hours) Vital Signs Temp Pulse Resp BP Pulse Ox 02/18/20 04:06 36.7 C 78 110/75 02/18/20 01:30 18 02/18/20 01:28 89 102/70 02/18/20 01:26 87 98 02/18/20 01:25 36.8 C 18 02/18/20 01:21 77 96 02/18/20 01:16 75 96 02/18/20 01:13 80 105/72 02/18/20 01:11 93 H 97 02/18/20 01:06 86 96 02/18/20 01:01 88 96 02/18/20 00:58 93 H 113/71 02/18/20 00:56 87 97 02/18/20 00:51 93 H 95 02/18/20 00:46 95 H 97 02/18/20 00:44 100 H 121/66 02/18/20 00:41 86 95 02/18/20 00:36 83 95 02/18/20 00:31 82 95 02/18/20 00:30 18 02/18/20 00:28 80 111/74 02/18/20 00:26 79 95 02/18/20 00:21 77 96 02/18/20 00:17 82 94 02/18/20 00:16 80 95 02/18/20 00:13 71 114/75 02/18/20 00:11 78 95 02/18/20 00:06 79 96 02/18/20 00:01 77 96 02/17/20 23:58 68 117/77 02/17/20 23:56 72 97 02/17/20 23:51 76 96 02/17/20 23:46 90 98 02/17/20 23:43 75 108/73 02/17/20 23:41 84 97 02/17/20 23:36 85 96 02/17/20 23:31 95 H 97 02/17/20 23:30 18 02/17/20 23:28 82 115/76 02/17/20 23:26 76 95 02/17/20 23:21 73 96 02/17/20 23:16 82 97 02/17/20 23:13 81 112/72 02/17/20 23:11 85 97 02/17/20 23:06 86 97 02/17/20 23:01 88 97 02/17/20 22:58 89 116/75 02/17/20 22:56 73 96 02/17/20 22:51 75 97 02/17/20 22:46 77 96 02/17/20 22:43 75 112/75 02/17/20 22:41 76 96 02/17/20 22:36 78 97 02/17/20 22:31 74 96 02/17/20 22:30 18 02/17/20 22:28 78 108/72 02/17/20 22:26 89 97 02/17/20 22:21 88 97 02/17/20 22:16 75 97 02/17/20 22:13 72 113/75 02/17/20 22:11 73 97 02/17/20 22:06 84 98 02/17/20 22:01 79 98 02/17/20 21:58 83 111/80 02/17/20 21:56 93 H 98 02/17/20 21:51 82 98 02/17/20 21:46 87 98 02/17/20 21:43 82 115/78 02/17/20 21:41 82 98 02/17/20 21:36 77 98 02/17/20 21:31 86 99 02/17/20 21:30 18 02/17/20 21:28 79 111/78 02/17/20 21:26 92 H 99 02/17/20 21:21 98 H 100 02/17/20 21:16 83 98 02/17/20 21:13 83 115/75 02/17/20 21:11 91 H 98 02/17/20 21:06 96 H 98 02/17/20 21:01 89 97 02/17/20 20:58 96 H 108/74 02/17/20 20:56 96 H 96 02/17/20 20:51 99 H 97 02/17/20 20:46 93 H 97 02/17/20 20:43 88 110/72 02/17/20 20:41 92 H 97 02/17/20 20:36 91 H 98 02/17/20 20:31 89 98 02/17/20 20:30 18 02/17/20 20:28 88 110/74 02/17/20 20:26 92 H 98 02/17/20 20:21 88 98 02/17/20 20:16 90 97 02/17/20 20:13 86 111/71 02/17/20 20:11 91 H 99 02/17/20 20:06 88 99 02/17/20 20:01 89 99 02/17/20 19:58 83 121/78 02/17/20 19:56 88 100 02/17/20 19:51 85 100 02/17/20 19:46 85 100 02/17/20 19:43 83 117/76 02/17/20 19:41 80 100 02/17/20 19:36 82 100
--- NOTE | 2020-02-25 13:30 | Discharge Summary (DS) ---
READMISSION DIAGNOSIS: Severe preeclampsia. HOSPITAL COURSE: The patient was readmitted for preeclampsia with severe features. The patient presented to the Emergency Department feeling ill and was noted to have an elevated creatinine and some low range blood pressures. The patient was readmitted with a diagnosis of preeclampsia with severe features and was started on mag per regular protocol. The mag protocol continued for 24 hours. The patient had excellent diuresis throughout. Her creatinine did improve throughout her hospital course and patient's blood pressures remained within normal limits. All other preeclampsia labs were within normal range and the patient was doing well on hospital day #2 and was stable for discharge. The patient was given both written and verbal discharge instructions with planned followup blood pressure check at the end of the week.
== END 2020-02-18 08:25 | disposition home or self-care (01) ==
LOC: OPB 23:12 → 4S1 23:12 → INTOOBSV 23:30 → 4S1 23:30